=== PATIENT | female | born 1980 | race Caucasian/White ===

== ENCOUNTER 2017-08-27 10:09 | Emergency (ER) | payer MEDICAID, OTHER ==
[~2017-08-27] VITALS: Ht 157.5 cm; Wt 72.5 kg
[2017-08-27 10:21] VITALS: Ht 157.5 cm; Wt 72.5 kg
--- NOTE | 2017-08-27 11:30 | RADRPT ---
PROCEDURE: US OB. CLINICAL INDICATION: Vaginal Bleed () TECHNIQUE: Transabdominal and transvaginal views of the pelvis are available for review. COMPARISON: No prior studies are available for comparison. FINDINGS: The uterus is present containing a intrauterine gestational sac and pole. The measurements are as follows. [place]-rump length:2.37 cm heart rate:179 bpm EDWARD: 04/03/2018 Ultrasound estimated gestational age:8 weeks 5 days Bilateral ovaries are not visualized. No adnexal mass lesion is seen. There is no free fluid. No subchorionic hemorrhage identified. IMPRESSION: 1. Single live intrauterine with an estimated gestational age of 8 weeks 5 days. 2. EDWARD 04/03/2018 .Malvin Mari MD, Date Time Electronically viewed and signed by .Malvin Mari MD, on 08/27/2017 11:30 .M/
[2017-08-27 11:31] LABS: BASOPHIL # 0.1 10^3/ul (0.0-0.1); BASOPHILS % 0.7 % (0.0-2.0); EOSINOPHILS # 0.1 10^3/ul (0.0-0.5); EOSINOPHILS % 0.7 % (0.0-7.0); HEMATOCRIT 40.9 % (37.0-47.0); HEMOGLOBIN 12.9 g/dl (12.0-16.0); LYMPHOCYTES # 2.8 10^3/ul (0.8-2.9); LYMPHOCYTES % 34.4 % (15.0-51.0); MEAN CORPUSCULAR HEMOGLOBIN 26.9 pg (29.0-33.0); MEAN CORPUSCULAR HGB CONC 31.5 g/dl (32.0-37.0); MEAN CORPUSCULAR VOLUME 85.2 fl (82.0-101.0); MEAN PLATELET VOLUME 12.6 fl (7.4-10.4); MONOCYTE # 0.6 10^3/ul (0.3-0.9); NEUTROPHIL # 4.6 10^3/ul (1.6-7.5); PLATELET COUNT 283 10^3/UL (140-415); WHITE BLOOD COUNT 8.1 10^3/ul (4.8-10.8)
[2017-08-27 11:31] LABS: ADD UMIC YES; UR ASCORBIC ACID 40 mg/dL (NEGATIVE); UR BILIRUBIN (Dip) NEGATIVE (NEGATIVE); UR BLOOD (Dip) 2+ mg/dL (NEGATIVE); UR CLARITY SLIGHTLY CLOUDY (CLEAR); UR COLOR YELLOW (YELLOW); UR GLUCOSE (Dip) NEGATIVE (NEGATIVE); UR KETONES (Dip) 1+ mg/dL (NEGATIVE); UR LEUKOCYTE ESTERASE (Dip) 2+ Leu/ul (NEGATIVE); UR MUCUS FEW /HPF (NONE SEEN); UR NITRITE (Dip) NEGATIVE (NEGATIVE); UR RBC 3 /HPF (0-5); UR SPECIFIC GRAVITY (Dip) 1.018 (1.003-1.030); UR SQUAMOUS EPITHELIAL CELL FEW /HPF (FEW); UR TOTAL PROTEIN (Dip) NEGATIVE (NEGATIVE); UR UROBILINOGEN (Dip) NEGATIVE (NEGATIVE)
[2017-08-27] MEDS ORDERED: NITR-58 PO (12:50)
--- NOTE | 2017-08-27 14:36 | ERD ---
ER Documentation Chief Complaint Date/Time DATE: 08/27/17 TIME: 14:32 Chief Complaint Complains of vag bleed and HPI 86-year-old female complaining of vaginal bleeding and . Patient's 8 weeks . A0. Denies any pelvic pain. Being seen at [facility]. Had an ultrasound a few weeks ago that showed IUP. No vaginal clots. Last normal menstrual period June 18. ROS All systems reviewed and are negative except as per history of present illness. Medications Home Meds Active Scripts Nitrofurantoin Monohyd Macrocr* (Macrobid*) 100 Mg Capsr, 100 MG PO BID for 14 Days, CAP Prov:MARV ESTEVEZ PA-C 08/27/17 Physical Exam Vitals Vital Signs Date Time Temp Pulse Resp B/P Pulse Ox O2 Delivery O2 Flow Rate FiO2 08/27/17 10:21 98.3 63 20 141/64 99 Physical Exam GENERAL: The patient is well-appearing, well-nourished, in no acute distress CHEST: Clear to auscultation bilaterally. There are no rales, wheezes or rhonchi. HEART: Regular rate and rhythm. No murmurs, clicks, rubs or gallops. No S3 or S4. ABDOMEN: Soft nontender and nondistended abdomen. No tenderness palpation of the pelvic region. BACK: No midline or flank tenderness. Result Diagram: 08/27/17 1110 Results 24 hrs Laboratory Tests Test 08/27/17 11:05 08/27/17 11:10 Urine Color YELLOW Urine Clarity SLIGHTLY CLOUDY Urine pH 6.0 Urine Specific [place] 1.018 Urine Ketones 1+mg/dL Urine Nitrite NEGATIVEmg/dL Urine Bilirubin NEGATIVEmg/dL Urine Urobilinogen NEGATIVEmg/dL Urine Leukocyte Esterase 2+Luis/ul Urine Microscopic RBC 3/HPF Urine Microscopic WBC 52/HPF Urine Squamous Epithelial Cells FEW/HPF Urine Mucus FEW/HPF Urine Hemoglobin 2+mg/dL Urine Glucose NEGATIVEmg/dL Urine Total Protein NEGATIVEmg/dl White Blood Count 8.110^3/ul Red Blood Count 4.8010^6/ul Hemoglobin 12.9g/dl Hematocrit 40.9% Mean Corpuscular Volume 85.2fl Mean Corpuscular Hemoglobin 26.9pg Mean Corpuscular Hemoglobin Concent 31.5g/dl Red Cell Distribution Width 21.0% Platelet Count 69433^3/UL Mean Platelet Volume 12.6fl Neutrophils % 57.0% Lymphocytes % 34.4% Monocytes % 7.0% Eosinophils % 0.7% Basophils % 0.7% Nucleated Red Blood Cells % 0.0/100WBC Neutrophils # 4.610^3/ul Lymphocytes # 2.810^3/ul Monocytes # 0.610^3/ul Eosinophils # 0.110^3/ul Basophils # 0.110^3/ul Nucleated Red Blood Cells # 0.010^3/ul Beta HCG, Quantitative 285126.0mIU/ml Procedures/MDM DIAGNOSTIC IMAGING REPORT Patient: ZUNILDA SIMON : 1980 Age: 36 Sex: F MR #: [id number] DOS: 08/27/17 1056 Ordering MD: FLORESITA ESTEVEZ PA-C Location: [facility] Room/Bed: PROCEDURE: US OB. CLINICAL INDICATION: Vaginal Bleed () TECHNIQUE: Transabdominal and transvaginal views of the pelvis are available for review. COMPARISON: No prior studies are available for comparison. FINDINGS: The uterus is present containing a intrauterine gestational sac and pole. The measurements are as follows. [place]-rump length: 2.37 cm heart rate: 179 bpm EDWARD: 04/03/2018 Ultrasound estimated gestational age: 8 weeks 5 days Bilateral ovaries are not visualized. No adnexal mass lesion is seen. There is no free fluid. No subchorionic hemorrhage identified. IMPRESSION: 1. Single live intrauterine with an estimated gestational age of 8 weeks 5 days. 2. EDWARD 04/03/2018 MDM: 36-year-old female complaining of vaginal bleeding. Live intrauterine evaluated in ultrasound. I have low suspicion for miscarriage at this time however patient does have pelvic bleeding which puts her at risk for possible miscarriage. Does have positive findings of urinary tract infection on urinalysis I will treat with oral antibiotics. Patient is Rh+ and does not require RhoGam injection. Hemoglobin is stable. Patient is recommended to return if symptoms change or worsen. Patient was recommended to follow-up with [facility] in 1-2 days. All questions answered at discharge. Departure Diagnosis: Primary Impression: UTI (urinary tract infection) Additional Impression: Vaginal bleeding Condition: Stable Patient Instructions: Understanding Urinary Tract Infections (UTIs), Possible Miscarriage (Threatened ) Referrals: [facility] YOU HAVE RECEIVED A MEDICAL SCREENING EXAM AND THE RESULTS INDICATE THAT YOU DO NOT HAVE A CONDITION THAT REQUIRES URGENT TREATMENT IN THE EMERGENCY DEPARTMENT. FURTHER EVALUATION AND TREATMENT OF YOUR CONDITION CAN WAIT UNTIL YOU ARE SEEN IN YOUR DOCTORS OFFICE WITHIN THE NEXT 1-2 DAYS. IT IS YOUR RESPONSIBILITY TO MAKE AN APPOINTMENT FOR FOLOW-UP CARE. IF YOU HAVE A PRIMARY DOCTOR --you should call your primary doctor and schedule an appointment IF YOU DO NOT HAVE A PRIMARY DOCTOR YOU CAN CALL OUR PHYSICIAN REFERRAL HOTLINE AT IF YOU CAN NOT AFFORD TO SEE A PHYSICIAN YOU CAN CHOSE FROM THE FOLLOWING [facility] [address] [facility] [address] [facility] [facility] [address] [facility] [address] [facility]. [facility] [address] [facility] [facility]. [address] Additional Instructions: FOLLOW UP WITH YOUR PRIMARY CARE PHYSICIAN TOMORROW.Return to this facility if you are not improving as expected. MARV ESTEVEZ PA-C Aug 27, 2017 14:36
== END 2017-08-27 13:18 | disposition home or self-care (01) ==
LOC: FTE 10:09
DX: O23.41 Unspecified infection of urinary tract in pregnancy, first trimester (principal); R10.2 Pelvic and perineal pain; Z3A.08 8 weeks gestation of pregnancy
CPT/HCPCS: 36415; 76801; 81001; 84702; 85025; 86900; 86901; Z7502

== ENCOUNTER 2018-03-03 12:40 | Outpatient (CLI) | END 2018-03-03 15:12 | disposition home or self-care (01) ==

== ENCOUNTER 2018-03-10 14:00 | Inpatient (IN) | END 2018-03-14 18:35 | disposition home or self-care (01) | DRG 774 ==